=== PATIENT | female | born 1955 | race Caucasian/White ===

== ENCOUNTER 2019-07-06 12:54 | Observation (INO) ==
[2019-07-06] MEDS ORDERED: Ondansetron 4 MG/2 ML VIAL IVP PRN (15:19)
[2019-07-06] MEDS ORDERED: Naloxone 0.4 MG/ML INJ IVP PRN (15:19)
[2019-07-06] MEDS ORDERED: D5% in Water 1,000 ML IVC PRN (15:26)
[2019-07-06] MEDS ORDERED: Dextrose Gel 15 GM/37.5 ML TUBE PO PRN ×2 (15:26)
[2019-07-06] MEDS ORDERED: *HR* Dextrose 50 % in Water (Syg) 50 ML SYRINGE IVP PRN (15:26)
[2019-07-06] MEDS ORDERED: 0.9 % Sodium Chloride 250 ML IVC SCH (15:30)
[2019-07-06 15:50] LABS: Hematocrit 17.9 % (35.3-44.9); Hemoglobin 6.3 g/dL (11.5-15.4); Mean Corpuscular HGB Conc 35.2 g/dL (31.6-35.5); Mean Corpuscular Hemoglobin 29.2 pg (28.0-33.3); Mean Corpuscular Volume 82.9 fL (83.0-100.0); Red Blood Count 2.16 M/mcL (3.82-4.97); Red Cell Distribution Width 15.6 % (11.5-14.5)
[2019-07-06 15:52] LABS: Eosinophils % 0.7 %; Immature Granulocytes % 0.4 % (0-4); Lymphocytes % 35.7 %; Monocytes # 0.1 K/mcL (0.0-1.3); Monocytes % 3.5 %; Neutrophils # 1.7 K/mcL (1.6-8.9); Segmented Neutrophils % 59.7 %; White Blood Count 2.8 K/mcL (4.3-11.1)
[2019-07-06 15:56] LABS: Prothrombin Time 11.9 Seconds (9.4-12.1)
[2019-07-06 15:59] LABS: Activated Partial Thrombo Time 29.8 Seconds (26.0-36.0)
[2019-07-06 16:06] LABS: Platelet Count < 2 K/mcL (140-400)
[2019-07-06 16:13] LABS: Alanine Aminotransferase 13 Units/L (7-52); Albumin 4.1 g/dL (3.5-5.7); Albumin/Globulin Ratio 1.6 (1.1-2.2); Alkaline Phosphatase 103 Units/L (34-104); Aspartate Amino Transferase 11 Units/L (13-39); BUN/Creatinine Ratio 46 (6-26); Bilirubin,Total 0.8 mg/dL (0.3-1.0); Blood Urea Nitrogen 77 mg/dL (8-23); Calcium 9.4 mg/dL (8.6-10.3); Carbon Dioxide 25 mEq/L (23-29); Chloride 93 mEq/L (98-107); Globulin 2.5 g/dL (2.4-3.5); Glucose 197 mg/dL (70-105); Osmolality,Calculated 298 (280-300); Potassium 4.6 mEq/L (3.5-5.1); Sodium 130 mEq/L (136-145); Total Protein 6.6 g/dL (6.4-8.9); Troponin I < 0.03 ng/mL (< 0.04); eGFR For African Americans 37 (> 60); eGFR For Non-African Americans 30 (> 60)
[2019-07-06 16:23] LABS: Platelet Estimate Marked Decrease (Normal)
[2019-07-06] MEDS ORDERED: Insulin LISPRO 300 UNITS/3 ML VIAL SQ SCH ×2 (16:30→21:00)
[2019-07-06] MEDS ORDERED: [UNRECOGNIZED DRUG - OTHER] IVC SCH (17:45)
[2019-07-06] MEDS ORDERED: Immune Glob, Gamma (Privigen) 20 GM/200 ML INFUS..BTL IVC SCH ×4 (17:45)
[2019-07-06 17:58] LABS: Eosinophils % 0.9 %; Hematocrit 17.8 % (35.3-44.9); Hemoglobin 6.1 g/dL (11.5-15.4); Immature Granulocytes % 0.3 % (0-4); Lymphocytes # 0.8 K/mcL (0.6-4.6); Lymphocytes % 24.3 %; Mean Corpuscular HGB Conc 34.3 g/dL (31.6-35.5); Mean Corpuscular Hemoglobin 28.8 pg (28.0-33.3); Monocytes # 0.1 K/mcL (0.0-1.3); Monocytes % 3.3 %; Neutrophils # 2.4 K/mcL (1.6-8.9); Red Blood Count 2.12 M/mcL (3.82-4.97); Red Cell Distribution Width 15.7 % (11.5-14.5); Segmented Neutrophils % 71.2 %; White Blood Count 3.3 K/mcL (4.3-11.1)
[2019-07-06] MEDS ORDERED: Dexamethasone 10 MG/ML VIAL IVP SCH (18:00)
[2019-07-06 18:01] LABS: Platelet Count < 2 K/mcL (140-400)
[2019-07-06] MEDS ORDERED: Pantoprazole 40 MG VIAL IVP SCH (18:45)
[2019-07-06 20:30] VITALS: BP 145/74
== END 2019-07-06 20:21 | disposition critical access hospital (66) ==
LOC: 3ANU
PROVIDERS: ADMIT Internal Medicine; ATTEND Internal Medicine

== ENCOUNTER 2019-10-04 10:20 | Observation (INO) ==
[2019-10-04] MEDS ORDERED: 0.9 % Sodium Chloride 1,000 ML IVC ONE (10:43)
[2019-10-04 11:11] LABS: Red Blood Count 2.36 M/mcL (3.82-4.97); Red Cell Distribution Width 14.2 % (11.5-14.5)
[2019-10-04 11:13] LABS: Hematocrit 19.5 % (35.3-44.9); Hemoglobin 6.9 g/dL (11.5-15.4); Immature Platelets 0.7 % (1.1-6.1); Lymphocytes % 22.1 %; Mean Corpuscular HGB Conc 35.4 g/dL (31.6-35.5); Mean Corpuscular Hemoglobin 29.2 pg (28.0-33.3); Mean Corpuscular Volume 82.6 fL (83.0-100.0); Mean Platelet Volume 9.6 fL (9.4-12.4); Monocytes # 0.2 K/mcL (0.0-1.3); Monocytes % 14.2 %; Neutrophils # 0.7 K/mcL (1.6-8.9); Segmented Neutrophils % 63.7 %; White Blood Count 1.1 K/mcL (4.3-11.1)
[2019-10-04 11:31] LABS: Lymphocytes # 0.2 K/mcL (0.6-4.6)
[2019-10-04 11:32] LABS: Platelet Count 2 K/mcL (140-400)
[2019-10-04 11:33] LABS: BUN/Creatinine Ratio 47 (6-26); Blood Urea Nitrogen 49 mg/dL (8-23); Calcium 8.7 mg/dL (8.6-10.3); Carbon Dioxide 26 mEq/L (23-29); Chloride 92 mEq/L (98-107); Glucose 172 mg/dL (70-105); Osmolality,Calculated 283 (280-300); Potassium 3.6 mEq/L (3.5-5.1); Sodium 128 mEq/L (136-145); eGFR For African Americans > 60 (> 60); eGFR For Non-African Americans 53 (> 60)
[2019-10-04 11:34] LABS: Troponin I < 0.03 ng/mL (< 0.04)
[2019-10-04] MEDS ORDERED: 0.9 % Sodium Chloride 250 ML ONE ×3 (12:28→22:00)
[2019-10-04] MEDS ORDERED: *HR* HYDROcodone/Acet 5/325 mg TABLET PO PRN (13:07)
[2019-10-04] MEDS ORDERED: Naloxone 0.4 MG/ML INJ IVP PRN (13:07)
[2019-10-04] MEDS ORDERED: *HR* OxyCODONE Immed Rel 5 MG TABLET PO PRN (13:07)
[2019-10-04 13:47] LABS: Bilirubin,Urine Negative (Negative); Blood,Urine Negative (Negative); Clarity,Urine Clear (Clear); Color,Urine Yellow (Yellow); Glucose,Urine (UA) Normal (Normal); Ketones,Urine Negative (Negative); Leukocyte Esterase,Urine Negative (Negative); Nitrite,Urine Negative (Negative); PH,Urine 6.5 pH Units (5.0-8.0); Protein,Urine Negative (Neg-Trace); Specific Gravity,Urine 1.012 (1.010-1.025); Urobilinogen,Urine Normal (Normal)
[2019-10-04] MEDS: Acetaminophen 325 MG TABLET PO PRN (17:59)
[2019-10-04] MEDS: Torsemide 20 MG TABLET PO SCH (20:33)
[2019-10-04] MEDS ORDERED: Acetaminophen 325 MG TABLET PO ONE (22:36)
[2019-10-05 04:18] LABS: Hematocrit 19.8 % (35.3-44.9); Immature Platelets 0.6 % (1.1-6.1); Lymphocytes # 0.2 K/mcL (0.6-4.6); Lymphocytes % 20.7 %; Mean Corpuscular HGB Conc 35.4 g/dL (31.6-35.5); Mean Corpuscular Hemoglobin 29.2 pg (28.0-33.3); Mean Corpuscular Volume 82.5 fL (83.0-100.0); Mean Platelet Volume 9.6 fL (9.4-12.4); Monocytes # 0.1 K/mcL (0.0-1.3); Monocytes % 11.7 %; Red Cell Distribution Width 13.7 % (11.5-14.5); Segmented Neutrophils % 67.6 %; White Blood Count 1.1 K/mcL (4.3-11.1)
[2019-10-05 04:26] LABS: Neutrophils # 0.7 K/mcL (1.6-8.9); Platelet Count 10 K/mcL (140-400)
[2019-10-05 04:35] LABS: BUN/Creatinine Ratio 46 (6-26); Blood Urea Nitrogen 39 mg/dL (8-23); Calcium 8.5 mg/dL (8.6-10.3); Carbon Dioxide 27 mEq/L (23-29); Chloride 93 mEq/L (98-107); Glucose 209 mg/dL (70-105); Magnesium 1.2 mg/dL (1.6-2.6); Osmolality,Calculated 286 (280-300); Potassium 3.2 mEq/L (3.5-5.1); Sodium 130 mEq/L (136-145); eGFR For African Americans > 60 (> 60); eGFR For Non-African Americans > 60 (> 60)
[2019-10-05] MEDS ORDERED: Potassium Chloride 20 MEQ, Lidocaine 1% 2 ML in 0.9 % Sodium Chloride 250 ML IVPB ONE (05:00)
[2019-10-05 06:51] VITALS: BP 134/64
[2019-10-05] MEDS ORDERED: Potassium Chloride Elixir 20 MEQ/15 ML UDC PO ONE (07:37)
[2019-10-05] MEDS ORDERED: Piperacillin/Tazobactam 3.375 GM in 0.9 % Sodium Chloride Mini Bag 100 ML IVPB SCH (08:00)
[2019-10-05] MEDS: Torsemide 20 MG TABLET PO SCH (08:43)
[2019-10-05] MEDS ORDERED: Spironolactone 25 MG TABLET PO SCH (09:00)
[2019-10-05] MEDS ORDERED: Ascorbic Acid 500 MG TABLET PO SCH (09:00)
[2019-10-05] MEDS: Acetaminophen 325 MG TABLET PO PRN (11:08)
[2019-10-05] MEDS ORDERED: hydrOXYzine pamoate 25 MG CAPSULE PO PRN (11:37)
[2019-10-05] MEDS ORDERED: Nystatin POWDER 30 GM BOTTLE TP PRN (11:37)
[2019-10-05] MEDS ORDERED: Ergocalciferol (VIT D2) 50,000 UNIT (1.25MG) CAP PO SCH (11:45)
[2019-10-05] MEDS ORDERED: ELTROMBOPAG OLAMINE PO SCH (11:45)
[2019-10-05] MEDS ORDERED: Fluconazole 100 MG TABLET PO SCH (11:45)
[2019-10-06 04:28] LABS: Acinetobacter baumannii by PCR Not Detected (Not Detect); Candida albicans by PCR Not Detected (Not Detect); Candida glabrata by PCR Not Detected (Not Detect); Candida krusei by PCR Not Detected (Not Detect); Candida parapsilosis by PCR Not Detected (Not Detect); Candida tropicalis by PCR Not Detected (Not Detect); Enterobacter cloacae Cmplx PCR Not Detected (Not Detect); Enterobacteriaceae by PCR Not Detected (Not Detect); Enterococcus by PCR DETECTED (Not Detect); Escherichia coli by PCR Not Detected (Not Detect); Klebsiella oxytoca by PCR Not Detected (Not Detect); Klebsiella pneumoniae by PCR Not Detected (Not Detect); Proteus by PCR Not Detected (Not Detect); Pseudomonas aeruginosa by PCR Not Detected (Not Detect); Serratia marcescens by PCR Not Detected (Not Detect); Staphylococcus aureus by PCR Not Detected (Not Detect); Staphylococcus by PCR Not Detected (Not Detect); Streptococcus agalactiae(B)PCR Not Detected (Not Detect); Streptococcus by PCR Not Detected (Not Detect); Streptococcus pneumoniae PCR Not Detected (Not Detect); Streptococcus pyogenes (A) PCR Not Detected (Not Detect); vanA/B Vancomycin-Resist Genes Not Detected (Not Detect)
== END 2019-10-05 14:28 | disposition left against medical advice (07) ==
LOC: 2NENU 10:20 → EMEROOARM 10:20 → 2NENU 17:05
PROVIDERS: ADMIT Internal Medicine; ATTEND Internal Medicine

== ENCOUNTER 2019-10-06 08:39 | Inpatient (IN) ==
[2019-10-06 10:20] LABS: Hematocrit 18.8 % (35.3-44.9); Hemoglobin 6.6 g/dL (11.5-15.4); Lymphocytes # 0.2 K/mcL (0.6-4.6); Lymphocytes % 20.7 %; Mean Corpuscular HGB Conc 35.1 g/dL (31.6-35.5); Mean Corpuscular Hemoglobin 28.8 pg (28.0-33.3); Mean Corpuscular Volume 82.1 fL (83.0-100.0); Mean Platelet Volume 8.6 fL (9.4-12.4); Monocytes # 0.1 K/mcL (0.0-1.3); Monocytes % 10.8 %; Neutrophils # 0.8 K/mcL (1.6-8.9); Red Blood Count 2.29 M/mcL (3.82-4.97); Red Cell Distribution Width 13.7 % (11.5-14.5); Segmented Neutrophils % 68.5 %; White Blood Count 1.1 K/mcL (4.3-11.1)
[2019-10-06 10:24] LABS: Platelet Count 4 K/mcL (140-400)
[2019-10-06 10:38] LABS: Alanine Aminotransferase 9 Units/L (7-52); Albumin 3.5 g/dL (3.5-5.7); Albumin/Globulin Ratio 1.1 (1.1-2.2); Alkaline Phosphatase 115 Units/L (34-104); Aspartate Amino Transferase 7 Units/L (13-39); BUN/Creatinine Ratio 44 (6-26); Bilirubin,Total 1.4 mg/dL (0.3-1.0); Blood Urea Nitrogen 40 mg/dL (8-23); Calcium 8.7 mg/dL (8.6-10.3); Carbon Dioxide 26 mEq/L (23-29); Chloride 91 mEq/L (98-107); Globulin 3.1 g/dL (2.4-3.5); Glucose 214 mg/dL (70-105); Osmolality,Calculated 280 (280-300); Potassium 3.2 mEq/L (3.5-5.1); Sodium 127 mEq/L (136-145); Total Protein 6.6 g/dL (6.4-8.9); eGFR For African Americans > 60 (> 60); eGFR For Non-African Americans > 60 (> 60)
[2019-10-06 10:42] LABS: Anisocytosis 1+ (Not Present); Microcytosis Present (Not Present); Platelet Estimate Marked Decrease (Normal)
[2019-10-06] MEDS ORDERED: Naloxone 0.4 MG/ML INJ IVP PRN (11:49)
[2019-10-06] MEDS ORDERED: Dextrose Gel 15 GM/37.5 ML TUBE PO PRN ×2 (11:53)
[2019-10-06] MEDS ORDERED: D5% in Water 1,000 ML IVC PRN (11:53)
[2019-10-06] MEDS ORDERED: *HR* Dextrose 50 % in Water (Syg) 50 ML SYRINGE IVP PRN (11:53)
[2019-10-06] MEDS ORDERED: Vancomycin 500 MG in 0.9 % Sodium Chloride Mini Bag 100 ML IVPB ONE (12:08)
[2019-10-06] MEDS ORDERED: Isovue-370 500 ML BOTTLE IVP ONE (13:05)
[2019-10-06] MEDS ORDERED: Isovue-370 500 ML BOTTLE PO ONE (13:38)
[2019-10-06] MEDS ORDERED: 0.9 % Sodium Chloride 250 ML ONE ×2 (15:33→19:42)
[2019-10-06] MEDS ORDERED: hydrOXYzine pamoate 25 MG CAPSULE PO PRN (15:37)
[2019-10-06] MEDS ORDERED: ELTROMBOPAG OLAMINE PO SCH (15:45)
[2019-10-06] MEDS ORDERED: *HR* OxyCODONE Immed Rel 5 MG TABLET PO PRN (16:51)
[2019-10-06] MEDS ORDERED: Acetaminophen 325 MG TABLET PO PRN (16:51)
[2019-10-06] MEDS: Insulin LISPRO 300 UNITS/3 ML VIAL SQ SCH (17:36)
[2019-10-06] MEDS: Torsemide 20 MG TABLET PO SCH (17:37)
[2019-10-06] MEDS: Fluconazole 100 MG TABLET PO SCH (17:37)
[2019-10-06] MEDS: *HR* HYDROcodone/Acet 5/325 mg TABLET PO PRN (17:46)
[2019-10-06] MEDS: Insulin DETEMIR 100 UNIT/ML X5UNITS SQ SCH (20:51)
[2019-10-06] MEDS: ELTROMBOPAG OLAMINE 75 MG PO SCH (20:52)
[2019-10-06 23:13] LABS: Bilirubin,Urine Negative (Negative); Blood,Urine Negative (Negative); Clarity,Urine Clear (Clear); Color,Urine Yellow (Yellow); Glucose,Urine (UA) Normal (Normal); Ketones,Urine Negative (Negative); Leukocyte Esterase,Urine Negative (Negative); Nitrite,Urine Negative (Negative); PH,Urine 6.5 pH Units (5.0-8.0); Protein,Urine Negative (Neg-Trace); Specific Gravity,Urine 1.019 (1.010-1.025); Urobilinogen,Urine Normal (Normal)
[2019-10-07 04:03] LABS: Hemoglobin 7.1 g/dL (11.5-15.4); Mean Corpuscular Volume 83.1 fL (83.0-100.0)
[2019-10-07 04:05] LABS: Hematocrit 20.1 % (35.3-44.9); Immature Granulocytes % 1.6 % (0-4); Immature Platelets 1.5 % (1.1-6.1); Lymphocytes # 0.3 K/mcL (0.6-4.6); Lymphocytes % 20.6 %; Mean Corpuscular HGB Conc 35.3 g/dL (31.6-35.5); Mean Corpuscular Hemoglobin 29.3 pg (28.0-33.3); Mean Platelet Volume 10.3 fL (9.4-12.4); Monocytes # 0.2 K/mcL (0.0-1.3); Monocytes % 11.9 %; Red Blood Count 2.42 M/mcL (3.82-4.97); Red Cell Distribution Width 13.9 % (11.5-14.5); Segmented Neutrophils % 65.9 %; White Blood Count 1.3 K/mcL (4.3-11.1)
[2019-10-07 04:09] LABS: BUN/Creatinine Ratio 43 (6-26); Blood Urea Nitrogen 39 mg/dL (8-23); Calcium 8.8 mg/dL (8.6-10.3); Carbon Dioxide 25 mEq/L (23-29); Chloride 95 mEq/L (98-107); Glucose 171 mg/dL (70-105); Magnesium 1.3 mg/dL (1.6-2.6); Osmolality,Calculated 283 (280-300); Potassium 3.5 mEq/L (3.5-5.1); Sodium 130 mEq/L (136-145); eGFR For African Americans > 60 (> 60); eGFR For Non-African Americans > 60 (> 60)
[2019-10-07 04:24] LABS: Neutrophils # 0.9 K/mcL (1.6-8.9); Platelet Count 5 K/mcL (140-400)
[2019-10-07] MEDS: ELTROMBOPAG OLAMINE 75 MG PO SCH (08:03)
[2019-10-07] MEDS: Ascorbic Acid 500 MG TABLET PO SCH (08:03)
[2019-10-07] MEDS: FEBUXOSTAT 40 MG PO SCH (08:04)
[2019-10-07] MEDS: Fluconazole 100 MG TABLET PO SCH (08:13)
[2019-10-07] MEDS: Insulin LISPRO 300 UNITS/3 ML VIAL SQ SCH ×3 (08:14→17:06)
[2019-10-07] MEDS: Torsemide 20 MG TABLET PO SCH ×2 (08:22→17:09)
[2019-10-07] MEDS ORDERED: Potassium Chloride Elixir 20 MEQ/15 ML UDC PO ONE (13:47)
[2019-10-07] MEDS: Piperacillin/Tazobactam 3.375 GM in 0.9 % Sodium Chloride Mini Bag 100 ML IVPB SCH (17:00)
[2019-10-07] MEDS: *HR* HYDROcodone/Acet 5/325 mg TABLET PO PRN (17:43)
[2019-10-07] MEDS: Clotrimazole Vag CRM 45 GM TUBE VG SCH (21:12)
[2019-10-07] MEDS: Insulin DETEMIR 100 UNIT/ML X5UNITS SQ SCH (21:12)
[2019-10-08] MEDS: Piperacillin/Tazobactam 3.375 GM in 0.9 % Sodium Chloride Mini Bag 100 ML IVPB SCH ×3 (00:45→14:49)
[2019-10-08] MEDS ORDERED: Potassium Chloride Elixir 20 MEQ/15 ML UDC PO ONE (07:34)
[2019-10-08] MEDS: Ascorbic Acid 500 MG TABLET PO SCH (08:55)
[2019-10-08] MEDS: Fluconazole 100 MG TABLET PO SCH (08:55)
[2019-10-08] MEDS: Torsemide 20 MG TABLET PO SCH ×2 (08:56→17:40)
[2019-10-08] MEDS: FEBUXOSTAT 40 MG PO SCH (09:00)
[2019-10-08] MEDS: ELTROMBOPAG OLAMINE 75 MG PO SCH (09:02)
[2019-10-08] MEDS: Insulin LISPRO 300 UNITS/3 ML VIAL SQ SCH ×2 (12:08→17:38)
[2019-10-08] MEDS: *HR* HYDROcodone/Acet 5/325 mg TABLET PO PRN (17:40)
[2019-10-08] MEDS: Clotrimazole Vag CRM 45 GM TUBE VG SCH (20:32)
[2019-10-08] MEDS ORDERED: Insulin DETEMIR 100 UNIT/ML X5UNITS SQ SCH (21:00)
[2019-10-09] MEDS: Piperacillin/Tazobactam 3.375 GM in 0.9 % Sodium Chloride Mini Bag 100 ML IVPB SCH ×2 (00:46→10:26)
[2019-10-09 08:08] LABS: Hematocrit 18.7 % (35.3-44.9); Hemoglobin 6.6 g/dL (11.5-15.4); Immature Granulocytes % 0.9 % (0-4); Lymphocytes # 0.3 K/mcL (0.6-4.6); Lymphocytes % 23.6 %; Mean Corpuscular HGB Conc 35.3 g/dL (31.6-35.5); Mean Corpuscular Hemoglobin 29.2 pg (28.0-33.3); Mean Corpuscular Volume 82.7 fL (83.0-100.0); Mean Platelet Volume 10.3 fL (9.4-12.4); Monocytes # 0.1 K/mcL (0.0-1.3); Monocytes % 11.3 %; Neutrophils # 0.7 K/mcL (1.6-8.9); Red Blood Count 2.26 M/mcL (3.82-4.97); Red Cell Distribution Width 13.8 % (11.5-14.5); Segmented Neutrophils % 64.2 %
[2019-10-09 08:11] LABS: White Blood Count 1.1 K/mcL (4.3-11.1)
[2019-10-09 08:16] LABS: Platelet Count 2 K/mcL (140-400)
[2019-10-09 08:23] LABS: BUN/Creatinine Ratio 39 (6-26); Blood Urea Nitrogen 37 mg/dL (8-23); Calcium 8.9 mg/dL (8.6-10.3); Carbon Dioxide 30 mEq/L (23-29); Chloride 92 mEq/L (98-107); Glucose 183 mg/dL (70-105); Magnesium 1.4 mg/dL (1.6-2.6); Osmolality,Calculated 283 (280-300); Phosphorous 3.5 mg/dL (2.7-4.5); Potassium 3.4 mEq/L (3.5-5.1); Sodium 130 mEq/L (136-145); eGFR For African Americans > 60 (> 60); eGFR For Non-African Americans 59 (> 60)
[2019-10-09] MEDS: Ascorbic Acid 500 MG TABLET PO SCH (10:25)
[2019-10-09] MEDS: Torsemide 20 MG TABLET PO SCH (10:25)
[2019-10-09] MEDS: Fluconazole 100 MG TABLET PO SCH (10:26)
[2019-10-09] MEDS: FEBUXOSTAT 40 MG PO SCH (10:27)
[2019-10-09] MEDS: Insulin LISPRO 300 UNITS/3 ML VIAL SQ SCH ×2 (10:27→12:23)
[2019-10-09] MEDS: ELTROMBOPAG OLAMINE 75 MG PO SCH (10:30)
[2019-10-09 12:10] VITALS: BP 127/78
[2019-10-09] MEDS ORDERED: Aminoglycoside Consult 1 EACH MC ONE (13:32)
== END 2019-10-09 13:33 | disposition left against medical advice (07) | DRG 193 ==
LOC: EMEROOARM 08:39 → 3ANU 08:39 → SUATTDRO 11:41 → 3ANU 11:42
PROVIDERS: ADMIT Internal Medicine; ATTEND Student in an Organized Health Care Education/Training Program

== ENCOUNTER 2019-11-08 19:02 | Observation (INO) ==
[2019-11-08 19:54] LABS: Mean Corpuscular HGB Conc 35.7 g/dL (31.6-35.5)
[2019-11-08 19:56] LABS: Immature Granulocytes % 1.8 % (0-4); Immature Platelets 0.3 % (1.1-6.1); Lymphocytes # 0.6 K/mcL (0.6-4.6); Lymphocytes % 25.3 %; Mean Corpuscular Hemoglobin 29.6 pg (28.0-33.3); Mean Corpuscular Volume 82.8 fL (83.0-100.0); Mean Platelet Volume 11.1 fL (9.4-12.4); Monocytes # 0.2 K/mcL (0.0-1.3); Monocytes % 7.8 %; Neutrophils # 1.4 K/mcL (1.6-8.9); Red Blood Count 1.69 M/mcL (3.82-4.97); Red Cell Distribution Width 13.6 % (11.5-14.5); Segmented Neutrophils % 65.1 %; White Blood Count 2.2 K/mcL (4.3-11.1)
[2019-11-08 20:04] LABS: INR 1.1; Prothrombin Time 12.9 Seconds (9.4-12.1)
[2019-11-08 20:09] LABS: Platelet Count 3 K/mcL (140-400)
[2019-11-08 20:22] LABS: Alanine Aminotransferase 7 Units/L (7-52); Albumin 3.6 g/dL (3.5-5.7); Albumin/Globulin Ratio 1.3 (1.1-2.2); Alkaline Phosphatase 134 Units/L (34-104); Aspartate Amino Transferase 6 Units/L (13-39); Bilirubin,Total 0.7 mg/dL (0.3-1.0); Blood Urea Nitrogen > 130 mg/dL (8-23); Calcium 9.1 mg/dL (8.6-10.3); Carbon Dioxide 24 mEq/L (23-29); Chloride 82 mEq/L (98-107); Globulin 2.8 g/dL (2.4-3.5); Glucose 379 mg/dL (70-105); Potassium 4.8 mEq/L (3.5-5.1); Sodium 120 mEq/L (136-145); Total Protein 6.4 g/dL (6.4-8.9); Troponin I < 0.03 ng/mL (< 0.04); eGFR For African Americans 34 (> 60); eGFR For Non-African Americans 28 (> 60)
[2019-11-08 20:47] LABS: Calcium 9.3 mg/dL (8.6-10.3); Magnesium 2.6 mg/dL (1.6-2.6)
[2019-11-08] MEDS ORDERED: Naloxone 0.4 MG/ML INJ IVP PRN (21:18)
[2019-11-08] MEDS ORDERED: Ondansetron ODT 4 MG TAB.RAPDIS SL PRN (21:18)
[2019-11-08] MEDS ORDERED: 0.9 % Sodium Chloride 1,000 ML IVC SCH (21:30)
[2019-11-08] MEDS ORDERED: 0.9 % Sodium Chloride 250 ML ONE (22:16)
[2019-11-08] MEDS ORDERED: Dextrose Gel 15 GM/37.5 ML TUBE PO PRN ×2 (22:35)
[2019-11-08] MEDS ORDERED: *HR* Dextrose 50 % in Water (Syg) 50 ML SYRINGE IVP PRN (22:35)
[2019-11-08] MEDS ORDERED: D5% in Water 1,000 ML IVC PRN (22:35)
[2019-11-08] MEDS ORDERED: Insulin DETEMIR 100 UNIT/ML X5UNITS SQ SCH (22:45)
[2019-11-09] MEDS ORDERED: 0.9 % Sodium Chloride 250 ML ONE ×2 (02:23→15:50)
[2019-11-09 02:33] LABS: Hematocrit 16.6 % (35.3-44.9)
[2019-11-09 02:36] LABS: Hemoglobin 5.8 g/dL (11.5-15.4)
[2019-11-09] MEDS ORDERED: 0.9 % Sodium Chloride 250 ML IVC SCH (04:00)
[2019-11-09] MEDS ORDERED: Insulin LISPRO 300 UNITS/3 ML VIAL SQ SCH ×3 (07:30→21:00)
[2019-11-09 08:54] LABS: Hematocrit 19.1 % (35.3-44.9); Hemoglobin 6.7 g/dL (11.5-15.4); Immature Platelets 0.8 % (1.1-6.1); Mean Corpuscular HGB Conc 35.1 g/dL (31.6-35.5); Mean Corpuscular Hemoglobin 29.3 pg (28.0-33.3); Mean Corpuscular Volume 83.4 fL (83.0-100.0); Red Blood Count 2.29 M/mcL (3.82-4.97); Red Cell Distribution Width 13.6 % (11.5-14.5); White Blood Count 2.2 K/mcL (4.3-11.1)
[2019-11-09] MEDS ORDERED: ELTROMBOPAG OLAMINE PO SCH (09:00)
[2019-11-09] MEDS ORDERED: Ascorbic Acid 500 MG TABLET PO SCH (09:00)
[2019-11-09] MEDS ORDERED: Cholecalciferol (D-3) 1,000 UNIT (25MCG) TABLET PO SCH (09:00)
[2019-11-09] MEDS ORDERED: (Febuxostat 80 MG) PO SCH (09:00)
[2019-11-09] MEDS ORDERED: rOPINIRole 1 MG TABLET PO SCH ×2 (09:00→21:00)
[2019-11-09] MEDS ORDERED: Fluconazole 100 MG TABLET PO SCH (09:00)
[2019-11-09] MEDS: Insulin LISPRO 300 UNITS/3 ML VIAL SQ SCH ×3 (09:01→16:13)
[2019-11-09 09:26] LABS: Blood Urea Nitrogen > 130 mg/dL (8-23); Calcium 9.3 mg/dL (8.6-10.3); Carbon Dioxide 27 mEq/L (23-29); Chloride 84 mEq/L (98-107); Glucose 288 mg/dL (70-105); Magnesium 2.6 mg/dL (1.6-2.6); Phosphorous 4.7 mg/dL (2.7-4.5); Potassium 4.2 mEq/L (3.5-5.1); Sodium 127 mEq/L (136-145); eGFR For African Americans 41 (> 60); eGFR For Non-African Americans 34 (> 60)
[2019-11-09] MEDS ORDERED: ELTROMBOPAG OLAMINE 75 MG PO SCH (13:15)
[2019-11-09] MEDS ORDERED: Acetaminophen 325 MG TABLET PO ONE (15:38)
[2019-11-09 16:21] VITALS: BP 114/66
== END 2019-11-09 19:27 | disposition home or self-care (01) ==
LOC: EMEROOARM 19:02 → 3ANU 19:02
PROVIDERS: ADMIT Student in an Organized Health Care Education/Training Program; ATTEND Student in an Organized Health Care Education/Training Program

== ENCOUNTER 2020-01-18 08:55 | Observation (INO) ==
[2020-01-18] MEDS ORDERED: Acetaminophen 325 MG TABLET PO PRN (12:29)
[2020-01-18] MEDS ORDERED: *HR* HYDROcodone/Acet 5/325 mg TABLET PO PRN (12:29)
[2020-01-18] MEDS ORDERED: Ondansetron 4 MG/2 ML VIAL IVP PRN (12:29)
[2020-01-18] MEDS ORDERED: Naloxone 0.4 MG/ML INJ IVP PRN (12:29)
[2020-01-18] MEDS ORDERED: Dextrose Gel 15 GM/37.5 ML TUBE PO PRN ×2 (12:52)
[2020-01-18] MEDS ORDERED: D5% in Water 1,000 ML IVC PRN (12:52)
[2020-01-18] MEDS ORDERED: *HR* Dextrose 50 % in Water (Vial) 50 ML VIAL IVP PRN (12:52)
[2020-01-18 14:06] LABS: Hematocrit 18.6 % (35.3-44.9); Hemoglobin 6.4 g/dL (11.5-15.4); Immature Platelets 1.3 % (1.1-6.1); Mean Corpuscular HGB Conc 34.4 g/dL (31.6-35.5); Mean Corpuscular Hemoglobin 28.6 pg (28.0-33.3); Monocytes # 0.1 K/mcL (0.0-1.3); Red Blood Count 2.24 M/mcL (3.82-4.97); Red Cell Distribution Width 14.6 % (11.5-14.5); White Blood Count 1.2 K/mcL (4.3-11.1)
[2020-01-18 14:24] LABS: BUN/Creatinine Ratio 65 (6-26); Blood Urea Nitrogen 70 mg/dL (8-23); Calcium 8.6 mg/dL (8.6-10.3); Carbon Dioxide 25 mEq/L (23-29); Chloride 93 mEq/L (98-107); Glucose 266 mg/dL (70-105); Osmolality,Calculated 300 (280-300); Potassium 3.9 mEq/L (3.5-5.1); Sodium 130 mEq/L (136-145); eGFR For African Americans > 60 (> 60); eGFR For Non-African Americans 51 (> 60)
[2020-01-18 14:37] LABS: Platelet Count < 2 K/mcL (140-400)
[2020-01-18 14:55] LABS: Lymphocytes # 0.3 K/mcL (0.6-4.6); Neutrophils # 0.8 K/mcL (1.6-8.9); Platelet Estimate Marked Decrease (Normal)
[2020-01-18 15:10] LABS: Prothrombin Time 11.8 Seconds (9.4-12.1)
[2020-01-18] MEDS ORDERED: 0.9 % Sodium Chloride 250 ML IVC SCH ×2 (15:15→15:45)
[2020-01-18] MEDS: Insulin LISPRO 300 UNITS/3 ML VIAL SQ SCH (17:49)
[2020-01-18] MEDS ORDERED: Insulin LISPRO 300 UNITS/3 ML VIAL SQ SCH (21:00)
[2020-01-19 03:40] LABS: Hemoglobin 6.7 g/dL (11.5-15.4); Lymphocytes # 0.5 K/mcL (0.6-4.6); Lymphocytes % 40.3 %; Mean Corpuscular HGB Conc 35.3 g/dL (31.6-35.5); Mean Corpuscular Hemoglobin 28.9 pg (28.0-33.3); Mean Corpuscular Volume 81.9 fL (83.0-100.0); Mean Platelet Volume 8.4 fL (9.4-12.4); Monocytes # 0.1 K/mcL (0.0-1.3); Monocytes % 9.2 %; Neutrophils # 0.6 K/mcL (1.6-8.9); Red Blood Count 2.32 M/mcL (3.82-4.97); Red Cell Distribution Width 14.2 % (11.5-14.5); Segmented Neutrophils % 50.5 %; White Blood Count 1.2 K/mcL (4.3-11.1)
[2020-01-19 03:44] LABS: Platelet Count 4 K/mcL (140-400)
[2020-01-19 04:02] LABS: BUN/Creatinine Ratio 65 (6-26); Blood Urea Nitrogen 71 mg/dL (8-23); Calcium 8.8 mg/dL (8.6-10.3); Carbon Dioxide 29 mEq/L (23-29); Chloride 94 mEq/L (98-107); Glucose 187 mg/dL (70-105); Osmolality,Calculated 298 (280-300); Potassium 3.6 mEq/L (3.5-5.1); Sodium 131 mEq/L (136-145); eGFR For African Americans > 60 (> 60); eGFR For Non-African Americans 50 (> 60)
[2020-01-19] MEDS: Insulin LISPRO 300 UNITS/3 ML VIAL SQ SCH (08:02)
[2020-01-19 10:46] VITALS: BP 115/75
== END 2020-01-19 11:55 | disposition short-term general hospital (02) ==
LOC: 3NENU
PROVIDERS: ADMIT Internal Medicine; ATTEND Internal Medicine

== ENCOUNTER 2020-03-30 04:24 | Inpatient (IN) ==
[2020-03-30] MEDS ORDERED: Ketorolac 15 MG/ML VIAL IVP PRN (06:59)
[2020-03-30] MEDS ORDERED: Naloxone 0.4 MG/ML INJ IVP PRN (07:00)
[2020-03-30] MEDS ORDERED: *HR* Dextrose 50 % in Water (Vial) 50 ML VIAL IVP PRN (07:57)
[2020-03-30] MEDS ORDERED: Dextrose Gel 15 GM/37.5 ML TUBE PO PRN ×2 (07:57)
[2020-03-30] MEDS ORDERED: D5% in Water 1,000 ML IVC PRN (07:57)
[2020-03-30] MEDS ORDERED: Furosemide 20 MG/2 ML VIAL IVP ONE ×2 (09:02→23:59)
[2020-03-30] MEDS ORDERED: Furosemide 40 MG/4 ML VIAL IVP SCH (10:45)
[2020-03-30] MEDS: Insulin LISPRO 300 UNITS/3 ML VIAL SQ SCH ×2 (12:50→16:26)
[2020-03-30] MEDS ORDERED: 0.9 % Sodium Chloride 250 ML ONE ×2 (13:23→20:29)
[2020-03-30] MEDS ORDERED: Perflutren Lipid Microsphere 1.3 ML in 0.9 % Sodium Chloride 8.7 ML IVP PRN (15:40)
[2020-03-30] MEDS ORDERED: levoFLOXacin 750 MG/150 ML 750 MG/150 ML BAG IVPB SCH (16:00)
[2020-03-30] MEDS: Pantoprazole 40 MG VIAL IVP SCH (16:24)
[2020-03-30] MEDS: Bumetanide 1 MG/4 ML VIAL IVP SCH (16:25)
[2020-03-30] MEDS: Ondansetron 4 MG/2 ML VIAL IVP PRN (16:25)
[2020-03-30] MEDS ORDERED: Torsemide 20 MG TABLET PO SCH (17:00)
[2020-03-30 17:42] LABS: Adenovirus Not Detected (Not Detect); Bordetella Pertussis Not Detected (Not Detect); Chlamydophila pneumoniae Not Detected (Not Detect); Coronavirus 229E Not Detected (Not Detect); Coronavirus HKU1 Not Detected (Not Detect); Coronavirus NL63 Not Detected (Not Detect); Coronavirus OC43 Not Detected (Not Detect); Human Metapneumovirus Not Detected (Not Detect); Human Rhinovirus/Enterovirus Not Detected (Not Detect); Influenza A Subtype 2009 H1 Not Detected (Not Detect); Influenza B Not Detected (Not Detect); Mycoplasma pneumoniae Not Detected (Not Detect); Parainfluenza Virus 1 Not Detected (Not Detect); Parainfluenza Virus 2 Not Detected (Not Detect); Parainfluenza Virus 3 Not Detected (Not Detect); Parainfluenza Virus 4 Not Detected (Not Detect); Respiratory Syncytial Virus Not Detected (Not Detect); SARS-CoV-2 Not Detected (Not Detect)
[2020-03-30] MEDS ORDERED: (Febuxostat 80 MG) PO SCH (18:00)
[2020-03-30] MEDS ORDERED: Spironolactone 25 MG TABLET PO SCH (21:00)
[2020-03-30] MEDS ORDERED: Insulin DETEMIR 100 UNIT/ML X5UNITS SQ SCH (21:00)
[2020-03-30] MEDS ORDERED: AMINOCAPROIC ACID 1000 MG PO SCH (21:00)
[2020-03-31] MEDS: Levalbuterol Neb 1.25 MG/3 ML IH SCH ×5 (01:12→21:51)
[2020-03-31 01:19] LABS: ABG Base Excess -1 mEq/L (-2 to 3); ABG HCO3 24 mEq/L (21-27); ABG Oxygen Saturation 90 % (95-98); ABG PCO2 41 mmHg (35-45); ABG PH 7.38 pH Units (7.32-7.45); ABG PO2 59 mmHg (85-104); ABG TCO2 25 mEq/L (20-26)
[2020-03-31 01:36] LABS: Hematocrit 19.6 % (35.3-44.9); Mean Corpuscular Volume 86.3 fL (83.0-100.0); Red Blood Count 2.27 M/mcL (3.82-4.97); Red Cell Distribution Width 14.7 % (11.5-14.5)
[2020-03-31 01:38] LABS: Hemoglobin 6.7 g/dL (11.5-15.4); Immature Granulocytes % 1.8 % (0-4); Lymphocytes # 0.1 K/mcL (0.6-4.6); Lymphocytes % 11.9 %; Mean Corpuscular HGB Conc 34.2 g/dL (31.6-35.5); Mean Corpuscular Hemoglobin 29.5 pg (28.0-33.3); Mean Platelet Volume 8.7 fL (9.4-12.4); Monocytes # 0.1 K/mcL (0.0-1.3); Monocytes % 9.2 %; Segmented Neutrophils % 77.1 %
[2020-03-31 01:49] LABS: Neutrophils # 0.9 K/mcL (1.6-8.9); White Blood Count 1.1 K/mcL (4.3-11.1)
[2020-03-31 01:51] LABS: BUN/Creatinine Ratio 84 (6-26); Blood Urea Nitrogen 79 mg/dL (8-23); Calcium 8.3 mg/dL (8.6-10.3); Carbon Dioxide 23 mEq/L (23-29); Chloride 101 mEq/L (98-107); Glucose 228 mg/dL (70-105); Osmolality,Calculated 309 (280-300); Platelet Count 4 K/mcL (140-400); Potassium 3.7 mEq/L (3.5-5.1); Sodium 134 mEq/L (136-145); eGFR For African Americans > 60 (> 60); eGFR For Non-African Americans 60 (> 60)
[2020-03-31] MEDS ORDERED: 0.9 % Sodium Chloride 250 ML ONE ×2 (02:03→17:19)
[2020-03-31 02:32] LABS: Platelet Estimate Marked Decrease (Normal)
[2020-03-31] MEDS ORDERED: Levalbuterol Neb 1.25 MG/3 ML ONE (04:09)
[2020-03-31] MEDS: Bumetanide 1 MG/4 ML VIAL IVP SCH ×2 (04:58→16:13)
[2020-03-31] MEDS: Pantoprazole 40 MG VIAL IVP SCH ×2 (04:58→18:37)
[2020-03-31] MEDS: Ondansetron 4 MG/2 ML VIAL IVP PRN ×3 (05:03→18:36)
[2020-03-31] MEDS ORDERED: Acetaminophen IV 1,000 MG/100 ML INFUS..BTL IVPB ONE ×2 (05:11→21:16)
[2020-03-31 06:23] LABS: Hematocrit 17.9 % (35.3-44.9); Hemoglobin 6.3 g/dL (11.5-15.4); Lymphocytes # 0.1 K/mcL (0.6-4.6); Lymphocytes % 11.6 %; Mean Corpuscular HGB Conc 35.2 g/dL (31.6-35.5); Mean Corpuscular Hemoglobin 30.1 pg (28.0-33.3); Mean Corpuscular Volume 85.6 fL (83.0-100.0); Mean Platelet Volume 8.8 fL (9.4-12.4); Monocytes # 0.1 K/mcL (0.0-1.3); Monocytes % 9.3 %; Neutrophils # 0.7 K/mcL (1.6-8.9); Red Blood Count 2.09 M/mcL (3.82-4.97); Red Cell Distribution Width 15.3 % (11.5-14.5); Segmented Neutrophils % 79.1 %
[2020-03-31 06:27] LABS: Platelet Count 5 K/mcL (140-400); White Blood Count 0.9 K/mcL (4.3-11.1)
[2020-03-31 06:46] LABS: Platelet Estimate Marked Decrease (Normal)
[2020-03-31] MEDS ORDERED: Piperacillin/Tazobactam 3.375 GM in 0.9 % Sodium Chloride Mini Bag 100 ML IVPB SCH (08:10)
[2020-03-31] MEDS ORDERED: Perflutren Lipid Microsphere 1.3 ML in 0.9 % Sodium Chloride 8.7 ML IVP PRN (08:15)
[2020-03-31] MEDS ORDERED: Dextrose Gel 15 GM/37.5 ML TUBE PO PRN ×2 (08:15)
[2020-03-31] MEDS ORDERED: D5% in Water 1,000 ML IVC PRN (08:15)
[2020-03-31] MEDS ORDERED: Naloxone 0.4 MG/ML INJ IVP PRN (08:15)
[2020-03-31] MEDS ORDERED: *HR* Dextrose 50 % in Water (Vial) 50 ML VIAL IVP PRN (08:15)
[2020-03-31] MEDS ORDERED: Furosemide 20 MG/2 ML VIAL IVP ONE (08:15)
[2020-03-31] MEDS ORDERED: Bumetanide 1 MG/4 ML VIAL IVP ONE ×2 (08:19→16:56)
[2020-03-31] MEDS: Insulin DETEMIR 100 UNIT/ML X5UNITS SQ SCH ×2 (08:52→22:21)
[2020-03-31] MEDS ORDERED: FLUCONAZOLE 400 MG PO SCH (09:00)
[2020-03-31] MEDS ORDERED: Cholecalciferol (D-3) 1,000 UNIT (25MCG) TABLET PO SCH (09:00)
[2020-03-31] MEDS ORDERED: Vancomycin 1,500 MG/265 ML IV.SOLN IVPB SCH (09:00)
[2020-03-31] MEDS ORDERED: FentaNYL (PF) 1,000 MCG/100 ML IV.SOLN IVC SCH (10:15)
[2020-03-31] MEDS: Piperacillin/Tazobactam 3.375 GM in 0.9 % Sodium Chloride Mini Bag 100 ML IVPB SCH ×2 (12:00→23:00)
[2020-03-31] MEDS: Insulin LISPRO 300 UNITS/3 ML VIAL SQ SCH ×2 (12:04→16:18)
[2020-03-31] MEDS: Vancomycin 1,250 MG/262.5 ML IV.SOLN IVPB SCH (13:15)
[2020-03-31] MEDS: Spironolactone 25 MG TABLET PO SCH ×2 (13:36→20:56)
[2020-03-31] MEDS: Cholecalciferol (D-3) 1,000 UNIT (25MCG) TABLET PO SCH (13:39)
[2020-03-31] MEDS ORDERED: *HR* LORazepam 2 MG/ML VIAL IVP PRN (15:41)
[2020-03-31] MEDS ORDERED: FEBUXOSTAT 80 MG PO SCH (18:00)
[2020-03-31] MEDS: levoFLOXacin 500 MG/100 ML 500 MG/100 ML BAG IVPB SCH (21:03)
[2020-03-31] MEDS: *HR* Metoprolol 5 MG/5 ML VIAL IVP SCH (22:06)
[2020-04-01] MEDS ORDERED: Bumetanide 1 MG/4 ML VIAL IVP ONE (00:30)
[2020-04-01] MEDS: Vancomycin 1,250 MG/262.5 ML IV.SOLN IVPB SCH ×2 (00:55→11:39)
[2020-04-01] MEDS: Levalbuterol Neb 1.25 MG/3 ML IH SCH ×4 (03:19→16:21)
[2020-04-01] MEDS: Pantoprazole 40 MG VIAL IVP SCH (05:34)
[2020-04-01] MEDS: *HR* Metoprolol 5 MG/5 ML VIAL IVP SCH ×2 (05:34→10:47)
[2020-04-01] MEDS: Piperacillin/Tazobactam 3.375 GM in 0.9 % Sodium Chloride Mini Bag 100 ML IVPB SCH ×2 (05:35→11:38)
[2020-04-01] MEDS: Insulin LISPRO 300 UNITS/3 ML VIAL SQ SCH ×2 (07:38→11:38)
[2020-04-01] MEDS: Bumetanide 1 MG/4 ML VIAL IVP SCH (07:39)
[2020-04-01] MEDS: Spironolactone 25 MG TABLET PO SCH (07:39)
[2020-04-01] MEDS: levoFLOXacin 500 MG/100 ML 500 MG/100 ML BAG IVPB SCH ×2 (07:40→09:41)
[2020-04-01] MEDS: Insulin DETEMIR 100 UNIT/ML X5UNITS SQ SCH (07:41)
[2020-04-01] MEDS: Cholecalciferol (D-3) 1,000 UNIT (25MCG) TABLET PO SCH (07:41)
[2020-04-01] MEDS: Ondansetron 4 MG/2 ML VIAL IVP PRN (09:40)
[2020-04-01 10:17] LABS: Hematocrit 16.5 % (35.3-44.9); Immature Platelets 0.3 % (1.1-6.1); Mean Corpuscular HGB Conc 33.9 g/dL (31.6-35.5); Mean Corpuscular Hemoglobin 30.1 pg (28.0-33.3); Mean Corpuscular Volume 88.7 fL (83.0-100.0); Mean Platelet Volume 9.3 fL (9.4-12.4); Red Blood Count 1.86 M/mcL (3.82-4.97); Red Cell Distribution Width 15.8 % (11.5-14.5)
[2020-04-01 10:30] LABS: Hemoglobin 5.6 g/dL (11.5-15.4); White Blood Count 0.6 K/mcL (4.3-11.1)
[2020-04-01 10:30] LABS: Calcium 8.9 mg/dL (8.6-10.3); Magnesium 1.7 mg/dL (1.6-2.6); Phosphorous 2.7 mg/dL (2.7-4.5); Potassium 3.8 mEq/L (3.5-5.1)
[2020-04-01] MEDS ORDERED: *HR* HYDROmorphone (PF) 1 MG/ML SYRINGE IVP PRN (14:54)
[2020-04-01] MEDS ORDERED: *HR* LORazepam 2 MG/ML VIAL IVP PRN (15:10)
[2020-04-01 16:26] VITALS: BP 118/63
[2020-04-02] MEDS ORDERED: Vancomycin 1,250 MG/262.5 ML IV.SOLN IVPB SCH (13:00)
== END 2020-04-01 17:35 | disposition short-term general hospital (02) | DRG 871 ==
LOC: 3ANU → SUATTDRO 12:12 → 2NNU 03-31 07:58
PROVIDERS: ADMIT Family Medicine; ATTEND Internal Medicine